=== PATIENT | female | born 1965 | race Caucasian/White ===

== ENCOUNTER 2021-11-23 10:54 | Day surgery (SDC) | payer OTHER ==
[2021-11-23] MEDS ORDERED: LACTATED RINGERS 1,000 ML IV ONE (10:59)
--- NOTE | 2021-11-23 12:04 | ANESTHESIA ---
Pre-Anesthesia VS, & Labs - Diagnosis screening - Procedure colonoscopy Vital Signs: Temp Pulse Resp BP Pulse Ox 36.4 C L 84 20 164/99 H 99 11/23/21 11:18 11/23/21 11:18 11/23/21 11:18 11/23/21 11:18 11/23/21 11:18 Height: 5 ft 2 in Weight (kg): 66.4 kg Body Mass Index: 26.7 BMI Classification: Overweight - NPO >8 hours - Is Patient ?: No Home Medications and Allergies Home Medications: Ambulatory Orders No Known Home Medications 11/23/21 No Known Home Medications 11/23/21 Allergies/Adverse Reactions: Allergies Allergy/AdvReac Type Severity Reaction Status Date / Time Sulfa (Sulfonamide Allergy Rash Verified 11/22/21 15:52 Antibiotics) Anes History & Medical History - Anesthetic History Anesthesia Complications: reports: No previous complications Family history of Anesthesia Complications: Denies Family history of Malignant Hyperthermia: Denies - Medical History Cardiovascular: reports: None Pulmonary: reports: None Gastrointestinal: reports: None Urinary: reports: None Musculoskeletal: reports: None Endocrine/Autoimmune: reports: None Skin: reports: None - Surgical History Gynecologic: reports: section, Hysterectomy Exam General: Alert, Oriented x3, Cooperative Dental: WNL Mouth Openin Fingerbreadth Neck Mobility: Normal Mallampati classification: I Thyromental Distance: 4-6 cm Respiratory: Lungs clear Cardiovascular: Regular rate Plan Anesthesia Type: Total IV Consent for Procedure(s) Verified and Reviewed: Yes Code Status: Attempt Resuscitation ASA classification: 2-Mild systemic disease Is this case an emergency?: No
[2021-11-23] MEDS ORDERED: LIDOCAINE-MPF 2% 5 ML VIAL ONE (12:49)
[2021-11-23] MEDS ORDERED: PROPOFOL 200 MG/20 ML VIAL IVP ONE ×2 (12:49→12:54)
[2021-11-23] MEDS ORDERED: LACTATED RINGERS 200 ML IV ONE (13:14)
[2021-11-23] MEDS ORDERED: IOPAMIDOL-300 50 ML VIAL ONE (13:29)
[2021-11-23] MEDS ORDERED: IOVERSOL 320 100 ML VIAL IVP ONE ×2 (13:29→14:43)
[2021-11-23 13:35] LABS: BASOPHILS % (AUTO) 0.7 %; EOSINOPHILS # (AUTO) 0.1 10^3/uL (0.0-0.7); EOSINOPHILS % (AUTO) 2.1 %; HCT - HEMATOCRIT 40.6 % (37.0-47.0); HGB - HEMOGLOBIN 13.8 g/dL (12.0-16.0); LYMPHOCYTES # (AUTO) 1.2 10^3/uL (1.5-3.5); LYMPHOCYTES % (AUTO) 27.2 %; MEAN CORPUSCULAR HEMOGLOBIN 30.2 pg (27.0-31.0); MEAN CORPUSCULAR VOLUME 88.8 fL (81.0-99.0); MONOCYTES # (AUTO) 0.3 10^3/uL (0.0-1.0); MONOCYTES % (AUTO) 7.6 %; NEUTROPHILS # (AUTO) 2.6 10^3/uL (1.5-6.6); NEUTROPHILS % (AUTO) 62.2 %; PLT - PLATELET COUNT 199 10^3/uL (130-450); RED BLOOD COUNT 4.57 10^6/uL (4.20-5.40); RED CELL DISTRIBUTION WIDTH 12.8 % (12.0-15.0); WHITE BLOOD COUNT 4.2 x10^3/uL (4.8-10.8)
[2021-11-23 13:47] LABS: ALBUMIN 3.7 g/dL (3.2-5.5); ALBUMIN/GLOBULIN RATIO 1.4 (1.0-2.2); BILIRUBIN,TOTAL 0.8 mg/dL (0.2-1.0); CALCIUM 8.4 mg/dL (8.5-10.3); CREATININE 0.8 mg/dL (0.4-1.0); POTASSIUM 3.6 mmol/L (3.5-5.0); TOTAL PROTEIN 6.3 g/dL (6.7-8.2)
[2021-11-23 15:01] VITALS: BP 152/92
--- NOTE | 2021-11-23 15:51 | CT Report ---
PROCEDURE: Abdomen/Pelvis W INDICATIONS: Sigmoid colon mass on Colonoscopy CONTRAST: IV CONTRAST: Optiray 320 ml: 100 PO CONTRAST: Isovue 300 ml50 TECHNIQUE: After the administration of oral and intravenous contrast, 5 mm thick sections acquired from the diap hragms to the symphysis. 5 mm thick coronal and sagittal reformats were acquired. For radiation dos e reduction, the following was used: automated exposure control, adjustment of mA and/or kV accordin g to patient size. COMPARISON: None. FINDINGS: Image quality: Excellent. ABDOMEN: Lung bases: There is mild atelectasis in the lung bases. Heart size is normal. Solid organs: Evaluation of the liver demonstrates no focal hepatic mass lesions. Gallbladder appears within normal limits without calcified gallstones. Biliary system is non dilated. The spleen is nor mal in size. Pancreas enhances normally without peripancreatic fat stranding or fluid collections. N o adrenal nodules. Kidneys demonstrate no hydronephrosis. There are small oval hypodense foci within the left kidney which are too small to characterize but likely represent cysts. Peritoneum and bowel: Small bowel loops demonstrate normal wall thickness and caliber. There is segme ntal colonic wall thickening and enhancement within the mid to distal sigmoid colon measuring approxi mately 5.7 cm in length. There is associated minimal pericolonic fat stranding. Extramural extension cannot be excluded. No adjacent solid organ invasion or extension to the pelvic sidewall. There is no associated obstruction. A few colonic diverticula are present without acute diverticulitis. No free fluid or air. Nodes and vessels: No retroperitoneal or mesenteric adenopathy by size criteria. Aorta and inferior vena cava are normal in size. Miscellaneous: No ventral hernias. PELVIS: Genitourinary: Bladder wall thickness is normal. Miscellaneous: No inguinal hernias or adenopathy. Bones: No suspicious bony lesions. No vertebral body compression fractures. IMPRESSION: 1. Segmental colonic wall thickening and enhancement within the mid to distal sigmoid colon likely co rresponding to the mass visualized on colonoscopy. The findings are suspicious for an intramural neop lasm given clinical history. 2. Mild associated pericolonic fat stranding is nonspecific but mild extramural extension cannot be e xcluded. 3. No evidence of lymphadenopathy or metastatic disease in the abdomen and pelvis. Reviewed by: Calixto Ramirez MD on 11/23/2021 3:49 PM PST Approved by: Calixto Ramirez MD on 11/23/2021 3:49 PM PST Station ID: [id number]
--- NOTE | 2021-11-23 17:10 | ANESTHESIA POST OP EVALUATION ---
Anesthesia Post Eval - Post Anesthesia Eval Vitals: Last Vital Signs Temp 36.3 C L 11/23/21 15:00 Pulse 68 11/23/21 15:00 Resp 16 11/23/21 15:00 BP 152/92 H 11/23/21 15:00 Pulse Ox 98 11/23/21 15:00 CV Function Including HR & BP: Stable Pain Control: Satisfactory Nausea & Vomiting: Negative Mental Status: Baseline Respiratory Status: Airway Patent Hydration Status: Satisfactory Anesthesia Complications: None
== END 2021-11-23 10:55 | disposition home or self-care (01) ==
LOC: SDS 10:54
PROVIDERS: ATTEND Surgery
PROC: 0DBL8ZZ Excision of Transverse Colon, Via Natural or Artificial Opening Endoscopic (ICD-10-PCS; 2021-11-23)
PROC: 3E0H8KZ Introduction of Other Diagnostic Substance into Lower GI, Via Natural or Artificial Opening Endoscopic (ICD-10-PCS; 2021-11-23)
PROC: 0DBN8ZX Excision of Sigmoid Colon, Via Natural or Artificial Opening Endoscopic, Diagnostic (ICD-10-PCS; principal; 2021-11-23 12:15)
DX: Z12.11 Encounter for screening for malignant neoplasm of colon (principal); D12.5 Benign neoplasm of sigmoid colon; K64.4 Residual hemorrhoidal skin tags; K63.5 Polyp of colon; K64.8 Other hemorrhoids; K57.30 Diverticulosis of large intestine without perforation or abscess without bleeding; Z83.71 Family history of colonic polyps; Z87.19 Personal history of other diseases of the digestive system
CPT/HCPCS: 36415; 45381; 45385; 74177; 80053; 82378; 85025; J7120; Q9967